=== PATIENT | female | born 2000 | race Caucasian/White ===

== ENCOUNTER 2020-03-01 22:42 | Emergency (ER) | payer OTHER ==
[~2020-03-01] VITALS: Ht 162.6 cm; Wt 75.0 kg
[~2020-03-01 22:42] MED LIST: ONDA4TAB10 PO; SUMA25TA4 PO
--- NOTE | 2020-03-01 23:11 | PHYS DOC ---
Past History Past Medical History: Depression, Migraines Past Surgical History: No Surgical History Smoking: Non-smoker Alcohol Use: Rarely Drug Use: None General Adult EDM: Chief Complaint: HEADACHE HPI: HPI: ". I get migraines every so often.. but when they get this bad.. I have to come to ED.. " Patient is a 19 year old female who presents with above hx and complaints migraine headache . Patient had migraine headaches for years. With occasional periodic exacerbations. Patient has had previous CTs that were normal. Patient denies any recent trauma. Patient denies any fever or chills. Patient denies any specific ill contacts. Patient migraine is associated with photophobia, s ensitivity to sounds and scalp tenderness.. Has used triptan type drugs in the past couple of somewhat adequate relief. Patient follows with Dr. Dc. No recent travel. No specific ill contacts. Review of Systems: Review of Systems: Constitutional: Denies fever or chills Eyes: Denies change in visual acuity HENT: Denies nasal congestion or sore throat Respiratory: Denies cough or shortness of breath Cardiovascular: Denies chest pain or edema GI: Denies abdominal pain, , vomiting, bloody stools or diarrhea . Complains of nausea : Denies dysuria Musculoskeletal: Denies back pain or joint pain Integument: Denies rash Neurologic: Complains of headache,. Denies focal weakness or sensory changes Endocrine: Denies polyuria or polydipsia Lymphatic: Denies swollen glands Psychiatric: Denies depression or anxiety Family History: Family History: Noncontributory to presentation Current Medications: Current Meds: See nursing for home meds Allergies: Allergies: Allergies Coded Allergies Type Severity Reaction Last Updated Verified No Known Drug Allergies 08/14/13 No Physical Exam: PE: Constitutional: Well developed, well nourished, moderate acute distress, non- toxic appearance. [] HENT: Normocephalic, atraumatic, bilateral external ears normal, oropharynx moist, no oral exudates, nose normal. Scalp is tender to palpation. No temporal artery tenderness. Eyes: PERRLA, EOMI, conjunctiva normal, no discharge. [Does have photophobia. Miosis. Fundus generally benign-but limited exam. Consensual pupillary response . Neck: Normal range of motion, no tenderness, supple, no stridor. [] Cardiovascular:Heart rate regular rhythm, no murmur [] Lungs & Thorax: Bilateral breath sounds equal apex on auscultation [] Abdomen: Bowel sounds decreased, soft, no tenderness, no masses, no pulsatile masses. [] Skin: Warm, dry, no erythema, no rash. [] Back: No tenderness, no CVA tenderness. [] Extremities: No tenderness, no cyanosis, no clubbing, ROM intact, no edema. [] Neurologic: Alert and oriented X 3, normal motor function, normal sensory function, no focal deficits noted. [DTRs +2 patellar and brachial. Director Loan equal. No drift. Right-hand dominant. Ambulatory without problems. Psychologic: Affect anxious, judgement normal, mood normal. [] Current Patient Data: Vital Signs: Vital Signs Date Time Temp Pulse Resp B/P (MAP) Pulse Ox O2 Delivery O2 Flow Rate FiO2 03/01/20 22:59 98.2 79 18 166/65 (98) 97 Room Air EKG: EKG: [] Radiology/Procedures: Radiology/Procedures: Patient deferred CT at this time [] Heart Score: Risk Factors: Risk Factors: DM, Current or recent (<one month) smoker, HTN, HLP, family history of CAD, obesity. Risk Scores: Score 0 - 3: 2.5% MACE over next 6 weeks - Discharge Home Score 4 - 6: 20.3% MACE over next 6 weeks - Admit for Clinical Observation Score 7 - 10: 72.7% MACE over next 6 weeks - Early Invasive Strategies Course & Med Decision Making: Course & Med Decision Making Pertinent Labs and Imaging studies reviewed. (See chart for details) Risk and benefits of spinal tap discussed. Patient defers spinal tap at this time. Patient continue Tylenol and ibuprofen for pain. From marked pain may take Imitrex 100 mg at the beginning of headache. Never take more than 200 mg in a 24-hour period. Patient to follow-up primary care. Patient return if any concerns. At time of discharge. Patient without any significant complaints. May take Zofran up to 8 mg 4 times a day for nausea and vomiting. Follow-up with primary Dr. Dc for possible altered migraine reducing meds or meds plan for migraine exacerbations. Consider follow-up with neurology. Return if any concerns. Impression: 1. Migraine headache [] Adis Disclaimer: Adis Disclaimer: This electronic medical record was generated, in whole or in part, using a voice recognition dictation system. Departure Departure: Referrals: TAMIKO DC MD (PCP) Scripts Hydrocodone/Ibuprofen (HYDROCODONE-IBUPROFEN 7.5-200 ) 1 Each Tablet 1 TAB PO PRN Q6HRS PRN for PAIN, #30 TAB 0 Refills Prov: STEWART PENALOZA MD 03/02/20 Sumatriptan Succinate (IMITREX) 100 Mg Tablet 100 MG PO 1X for Headache, #10 TAB Prov: STEWART PENALOZA MD 03/02/20 Ondansetron Hcl (ZOFRAN) 4 Mg Tablet 8 MG PO QIDPRN PRN for nv, #30 TAB Prov: STEWART PENALOZA MD 03/02/20 Dragon Disclaimer This chart was dictated in whole or in part using Voice Recognition software in a busy, high-work load, and often noisy Emergency Department environment. It may contain unintended and wholly unrecognized errors or omissions. STEWART PENALOZA MD Mar 01, 2020 23:11
[2020-03-01] MEDS ORDERED: IV RINGERS SOLUTION,LACTATED 1,000 ML IV ONE (23:30)
[2020-03-01] MEDS ORDERED: PROCHLORPERAZINE 10 MG/2 ML VIAL. IV ONE (23:30)
[2020-03-01] MEDS ORDERED: diphenhydrAMINE 50 MG/ML VIAL IVP ONE (23:30)
[2020-03-01 23:33] LABS: BASO % 0 % (0-3); EOS # 0.1 x10^3/uL (0.0-0.7); EOS % 1 % (0-3); HEMATOCRIT 39.1 % (36.0-47.0); HEMOGLOBIN 13.1 g/dL (12.0-15.5); LYMPH % 21 % (24-48); MEAN CORPUSCULAR HEMOGLOBIN 30 pg (25-35); MEAN CORPUSCULAR HGB CONC 34 g/dL (31-37); MEAN CORPUSCULAR VOLUME 90 fL (79-100); MONO # 0.5 x10^3/uL (0.0-1.1); MONO % 5 % (0-9); NEUT # 7.1 x10^3uL (1.8-7.7); NEUT % 73 % (31-73); PLATELET COUNT 281 x10^3/uL (140-400); RED BLOOD COUNT 4.32 x10^6/uL (3.50-5.40); RED CELL DISTRIBUTION WIDTH 12.5 % (11.5-14.5); WHITE BLOOD COUNT 9.7 x10^3/uL (4.0-11.0)
[2020-03-01 23:38] LABS: CALCIUM 9.2 mg/dL (8.5-10.1); CREATININE 0.7 mg/dL (0.6-1.0); GFR 106.7; POTASSIUM 3.6 mmol/L (3.5-5.1)
[2020-03-01 23:40] LABS: C REACTIVE PROTEIN 1.1 mg/L (0-3.3)
[2020-03-02] MEDS ORDERED: SUMA100T3 PO (00:12)
[2020-03-02] MEDS ORDERED: ONDA4TAB7 PO (00:12)
[2020-03-02] MEDS ORDERED: HYDR-1179 PO (00:13)
[2020-03-02] MEDS ORDERED: SUMAtriptan SUCC 6 MG/0.5 ML VIAL SQ ONE (00:15)
[2020-03-02] MEDS ORDERED: KETOROLAC 30 MG/ML VIAL. IVP ONE (00:15)
[2020-03-02 00:26] VITALS: BP 105/67
== END 2020-03-02 01:05 | disposition home or self-care (01) ==
LOC: ER 22:42
DX: G43.909 Migraine, unspecified, not intractable, without status migrainosus (principal)
CPT/HCPCS: 36415; 80048; 84702; 85025; 86140; 96361; 96372; 96374; 96375; 99284; J0780; J1200; J1885; J3030; J7120